=== PATIENT | male | born 1980 ===

== ENCOUNTER 2017-12-02 18:20 | Day surgery (SDC) | payer OTHER, SELFPAY ==
[~2017-12-02 18:20] MED LIST: Dexamethasone 20 MG/5 ML VIAL ONE; Glycopyrrolate 0.2 MG/ML 5 ML SYRINGE ONE; Ketorolac Tromethamine 30 MG/ML VIAL ONE; Ondansetron HCl/PF 4 MG/2 ML Vial ONE; PROPOFOL 200 MG/20 ML VIAL ONE; Succinylcholine Chloride 20 MG/ML 10 ml SYRINGE FS ONE
[2017-12-02] MEDS ORDERED: Morphine 4 MG/ML VIAL ONE (18:41)
[2017-12-02] MEDS ORDERED: CEFAZOLIN/Water 2 GM/20 ML SYRINGE ONE (18:41)
[2017-12-02 18:46] LABS: #Basophils 0.1 thou/uL (0.0-0.2); #Eosinphils 0.1 thou/uL (0.0-0.7); #Lymphocytes 2.9 thou/uL (1.20-3.40); #Monocytes 0.7 thou/uL (0.11-0.59); %Basophils 0.7 % (0.0-1.0); %Eosinophils 1.8 % (0.0-10.0); %Lymphocytes 37.5 % (21.0-51.0); %Monocytes 8.6 % (0.0-10.0); %Neutrophils 51.3 % (42.0-75.0); Hemoglobin 14.4 g/dL (14.0-18.0); Mean Corpuscular HGB CONC 34.8 g/dL (32.0-36.0); Mean Corpuscular Hemoglobin 30.7 pg (27.0-31.0); Mean Corpuscular Volume 88.1 fl (80.0-94.0); Mean Platelet Volume 7.1 fL (7.4-10.4); Platelet Count 175 thou/uL (130-400); RBC Distribution Width 11.5 % (11.5-14.5); White Blood Cell (WBC) Count 7.8 thou/uL (4.8-10.8)
[2017-12-02] MEDS ORDERED: Neomycin-Polymyxin 1 ML AMP ONE (18:47)
[2017-12-02 19:04] LABS: ALT (SGPT) 16 U/L (8-55); AST (SGOT) 22 U/L (5-34); Alkaline Phosphatase 74 U/L (40-150); Anion Gap 10 mmol/L (10-20); BUN (Urea Nitrogen) 16 mg/dL (8.9-20.6); Bilirubin, Total 0.5 mg/dL (0.2-1.2); Calc. Creatinine Clearance 0 mL/min (70-130); Calcium 8.6 mg/dL (7.8-10.44); Carbon Dioxide 24 mmol/L (22-29); Chloride 108 mmol/L (98-107); Estimated GFR-MDRD Greater than 90; Globulin 2.5 g/dL (2.4-3.5); Glucose 138 mg/dL (70-105); Potassium 3.4 mmol/L (3.5-5.1); Protein, Total 6.5 g/dL (6.0-8.3); Sodium 139 mmol/L (136-145)
--- NOTE | 2017-12-02 19:10 | RAD ---
LEFT WRIST: 12/02/17 Three views. HISTORY: Injury to left wrist with laceration. There is skin disruption along the lateral radial side of the wrist at the distal radius. There is a fracture fragment from the lateral aspect of the distal radius at the site of the skin disruption. IMPRESSION: There is fracture of the distal radius at the site of skin disruption with a linear fragment of bone displaced from the radial shaft. POS: [facility]
[2017-12-02] MEDS ORDERED: Morphine 4 MG/ML VIAL SLOW IVP PRN (19:18)
[2017-12-02] MEDS ORDERED: Dextrose 5% in Water 1,000 ML IV PRN (19:18)
[2017-12-02] MEDS ORDERED: Ondansetron ODT 4 MG TAB PO PRN (19:18)
[2017-12-02] MEDS ORDERED: Ondansetron HCl/PF 4 MG/2 ML Vial IVP PRN (19:18)
[2017-12-02] MEDS ORDERED: Dextrose 50% Abboject 50 ML SYRINGE SLOW IVP PRN (19:18)
[2017-12-02] MEDS ORDERED: traMADol HCl 50 MG TAB PO PRN (19:22)
[2017-12-02] MEDS ORDERED: Sodium Chloride 0.9% 1,000 ML IV SCH (19:30)
[2017-12-02] MEDS ORDERED: Fentanyl 100 MCG/2 ML VIAL ONE (20:09)
--- NOTE | 2017-12-02 20:13 | HP ---
CHIEF COMPLAINT: Lacerated left forearm. HISTORY OF PRESENT ILLNESS: The patient is a 37-year-old man, who was working with a skill saw and it slipped and cut across his distal left forearm. He is right handed. EMS said there was little blood at the scene, may be at the most 200 mL. The patient was complaining of some numbn ess of the middle 2 fingers and the thumb. It occurred about 4:30 p.m. PAST MEDICAL HISTORY: Otherwise healthy. PAST SURGICAL HISTORY: None. MEDICATIONS: None. ALLERGIES: No known drug allergies. SOCIAL HISTORY: He is . No tobacco or alcohol. FAMILY HISTORY: Diabetes. PHYSICAL EXAMINATION: VITAL SIGNS: He is afebrile. Pulse 66, blood pressure 114/59, 98% sat. GENERAL: He is awake and alert. HEENT: Unremarkable. LUNGS: Clear. HEART: Regular rate and rhythm. ABDOMEN: Soft, nondistended, nontender. EXTREMITIES: He has a 6-cm laceration of the radial aspect of the distal left forearm. It extends t hrough muscle bellies and through what appeared to be fascia or possible tendons and there is some ex posed bone, but it does not appear as though the bone has been transected. There is minimal blood lo ss, minimal bleeding. He has a palpable radial and ulnar pulse. He has full range of motion, but it is a little limited on his thumb for flexion and extension. ASSESSMENT: Deep laceration of the left forearm. PLAN: Recommended orthopedic consultation for possible irrigation and closure. Also recommended jacinto in x-rays.
[2017-12-02] MEDS ORDERED: Bupivacaine HCl 0.5%/Epinephrine 1:200,000/PF 30 ml Vial ONE (20:59)
[2017-12-02] MEDS ORDERED: Famotidine 20 MG TAB PO SCH (21:00)
[2017-12-02] MEDS ORDERED: traMADol HCl 50 MG TAB PO SCH (23:59)
[2017-12-02] MEDS ORDERED: Acetaminophen 500 MG TAB PO SCH (23:59)
--- NOTE | 2017-12-03 00:03 | OP ---
DATE OF OPERATION: 12/02/2017 PREOPERATIVE DIAGNOSIS: Laceration on the volar radial aspect of the left distal forearm. POSTOPERATIVE DIAGNOSES: Laceration on the volar radial aspect of the left distal forearm with repai r of the abductor pollicis longus tendon and repair of the flexor carpi radialis tendon. PROCEDURE: Irrigation and debridement of the left forearm with repair of the abductor pollicis longu s tendon and flexor carpi radialis tendon and complex repair of a 7-cm wound. SURGEON: Jamar Kang MD ANESTHESIA: General. TECHNIQUE: The patient was given preoperative IV antibiotics, taken to the operating room and placed in supine position. Satisfactory general anesthesia was performed. The left upper extremity was st erilely prepped and draped in usual fashion. After exsanguination, the tourniquet was raised to 250 mmHg. The wound was oblique, laceration measured 7 cm on the volar radial aspect of the distal forea rm. It was extended 3-cm distally and proximally and the wound was copiously irrigated with antibiot ic solution using the high-speed maple syrup maker. There was a small fragment of bone on the volar radial a spect of the radius, which was loose, it was easily removed. There was a small fragment and did not jeopardize the integrity of the radius. The wound was explored and the abductor pollicis longus tend on to the left thumb was noted to be completely severed. It was repaired using 2-0 FiberWire in a mo dified [place]-type suture. Additional 2-0 FiberWire was used in interrupted simple sutures burying the knot between the two tendon ends that provided good repair to this tendon. The flexor carpi radi luba tendon was repaired also with the same suture in the same manner. There was very small lacerati ons of the superficial branch of the radial nerve. The radial artery was completely severed and it w as ligated with Vicryl. The wound was then closed using 0 Vicryl for the fat and subcutaneous tissue , and the skin was closed with 3-0 Rapide. A 30 mL of 0.5% Marcaine with epinephrine was used around the wound. A sterile dressing was applied along with a short-arm sugar tong splint with the wrist i n slight flexion and radial deviation and the thumb abducted. The tourniquet was released prior to c losure and there was good hemostasis and excellent blood flow to the left hand. After the dressing w as applied and the splint was hardened, the patient was awakened, extubated, and transferred to [facility] room in stable condition. ESTIMATED BLOOD LOSS: 10 mL COMPLICATIONS: None. TOURNIQUET TIME: 36 minutes. DISCHARGE MEDICATIONS: Tylenol No. 4 one every 6 hours as needed for pain, #50 with 1 refill, amoxic illin 875 mg 1 p.o. b.i.d. for 3 days #6. Follow up in my office in 1 week.
--- NOTE | 2017-12-14 11:25 | PQF ---
[facility] [place] POST DISCHARGE CLINICAL DOCUMENTATION IMPROVEMENT CLARIFICATION FORM Todays Date: 12/14/17 Patients Name CALEB GONZALEZ Admit Date 12/02/17 Disch Date 12/02/17 Product Manager [employer] Services Name GLADIS SANDHU Email: Cell: [phone] Present Clinical Indicators - Signs / Symptoms Results and Location in Medical Record [ ] Documentation of: [ ] [ ] Documentation of: [ ] [ ] Documentation of: [ ] [ ] Documentation of: [ ] [ ] Risks [ ] [ ] [ ] Treatment [ ] LACERATION REPAIR MISSING SIZE OF DEBRIDEMENT [ ] [ ] Dr. Jamar Kang The documentation in this patients record requires clarification to ensure coding compliance and accuracy. Check the appropriate box and include in your discharge summary. [ ] [ ] [ ] [ ] Please check this box if this does not apply to this patient [ ] Unable to determine [ ] Other diagnosis: Review the following information and exercise your independent professional judgment in responding to the clarification. Based upon the clinical findings, risk factors, and treatment, please clarify if you are treating one of the above probable or suspected diagnoses. Physician Signature: Date Time MTDD
== END 2017-12-02 23:00 | disposition home or self-care (01) ==
LOC: ERS 18:20 → SDC/OP 20:40
PROVIDERS: ATTEND Orthopaedic Surgery
PROC: 0JQH0ZZ Repair Left Lower Arm Subcutaneous Tissue and Fascia, Open Approach (ICD-10-PCS; principal; 2017-12-02)
PROC: 0LQ60ZZ Repair Left Lower Arm and Wrist Tendon, Open Approach (ICD-10-PCS; principal; 2017-12-02)
DX: S51.812A Laceration without foreign body of left forearm, initial encounter (principal); W31.2XXA Contact with powered woodworking and forming machines, initial encounter; Y99.0 Civilian activity done for income or pay
CPT/HCPCS: 80053; 85025; 86850; 86900; 86901; 90471; 93005; 96374; 96375; G0390; J0670; J1100; J1885; J2270; J2405; J2704; J3010